=== PATIENT | female | born 1940 | race Caucasian/White ===

== ENCOUNTER 2022-04-09 09:28 | Inpatient (IN) ==
[2022-04-09] MEDS ORDERED: Ipratropium/Albuterol Neb 3 ML IH PRN (17:03)
[2022-04-09] MEDS ORDERED: D5% in Water 1,000 ML IVC PRN (17:04)
[2022-04-09] MEDS ORDERED: Dextrose Gel 15 GM/37.5 ML TUBE PO PRN ×2 (17:04)
[2022-04-09] MEDS ORDERED: *HR* Dextrose 50 % in Water (Syg) 50 ML SYRINGE IVP PRN (17:04)
[2022-04-09] MEDS: hydrALAZINE 25 MG TABLET PO SCH (20:28)
[2022-04-09] MEDS: Gabapentin 400 MG CAPSULE PO SCH (20:30)
[2022-04-09] MEDS: Insulin LISPRO 300 UNITS/3 ML VIAL SUBQ SCH (20:35)
[2022-04-10 04:17] LABS: Basophils # 0.1 K/mcL (0.0-0.2); Basophils % 0.8 %; Eosinophils # 0.3 K/mcL (0.0-0.6); Eosinophils % 2.6 %; Hematocrit 29.5 % (35.3-44.9); Hemoglobin 9.4 g/dL (11.5-15.4); Immature Granulocytes % 4.2 % (0-4); Lymphocytes % 20.2 %; Mean Corpuscular HGB Conc 31.9 g/dL (31.6-35.5); Mean Corpuscular Hemoglobin 28.7 pg (28.0-33.3); Mean Corpuscular Volume 89.9 fL (83.0-100.0); Monocytes # 0.6 K/mcL (0.0-1.3); Monocytes % 5.6 %; Neutrophils # 6.5 K/mcL (1.6-8.9); Platelet Count 334 K/mcL (140-400); Red Blood Count 3.28 M/mcL (3.82-4.97); Red Cell Distribution Width 15.8 % (11.5-14.5); Segmented Neutrophils % 66.6 %; White Blood Count 9.8 K/mcL (4.3-11.1)
[2022-04-10 04:47] LABS: Calcium 9.5 mg/dL (8.6-10.3); Potassium 3.9 mEq/L (3.5-5.1)
[2022-04-10] MEDS: *HR* Enoxaparin 40 MG/0.4 ML SYRINGE SQ SCH (06:18)
[2022-04-10] MEDS: Insulin LISPRO 300 UNITS/3 ML VIAL SUBQ SCH ×4 (07:40→20:21)
[2022-04-10] MEDS ORDERED: Insulin DETEMIR 100 UNIT/ML X5UNITS SUBQ SCH (09:00)
[2022-04-10] MEDS: allopurinoL 100 MG TABLET PO SCH (10:09)
[2022-04-10] MEDS: hydrALAZINE 25 MG TABLET PO SCH ×3 (10:09→20:29)
[2022-04-10] MEDS: Magnesium Oxide 400 MG TABLET PO SCH (10:10)
[2022-04-10] MEDS: Gabapentin 400 MG CAPSULE PO SCH ×3 (10:10→20:29)
[2022-04-10] MEDS: Metoprolol XL (24 HR) Succ 50 MG TAB.ER.24H PO SCH (10:10)
[2022-04-10] MEDS: Aspirin 81 MG TAB.CHEW PO SCH (10:10)
[2022-04-10] MEDS: rOPINIRole 1 MG TABLET PO SCH (22:11)
[2022-04-10] MEDS: Furosemide 20 MG TABLET PO SCH (22:13)
[2022-04-11] MEDS: *HR* Enoxaparin 40 MG/0.4 ML SYRINGE SQ SCH (05:35)
[2022-04-11] MEDS: Insulin LISPRO 300 UNITS/3 ML VIAL SUBQ SCH ×4 (07:41→21:35)
[2022-04-11] MEDS: hydrALAZINE 25 MG TABLET PO SCH ×3 (07:52→21:36)
[2022-04-11] MEDS: Metoprolol XL (24 HR) Succ 50 MG TAB.ER.24H PO SCH (07:52)
[2022-04-11] MEDS: Aspirin 81 MG TAB.CHEW PO SCH (07:52)
[2022-04-11] MEDS: allopurinoL 100 MG TABLET PO SCH (07:52)
[2022-04-11] MEDS: Magnesium Oxide 400 MG TABLET PO SCH (07:53)
[2022-04-11] MEDS: Furosemide 20 MG TABLET PO SCH (07:53)
[2022-04-11] MEDS: Gabapentin 300 MG CAPSULE PO SCH ×3 (08:04→21:36)
[2022-04-11] MEDS: Nicotine 21 MG PATCH.TD24 TD SCH (08:05)
[2022-04-11] MEDS: Insulin DETEMIR 100 UNIT/ML X5UNITS SUBQ SCH ×2 (08:11→21:36)
[2022-04-11 17:25] LABS: Bilirubin,Urine Negative (Negative); Blood,Urine Negative (Negative); Clarity,Urine Clear (Clear); Color,Urine Yellow (Yellow); Glucose,Urine (UA) Normal (Normal); Ketones,Urine Negative (Negative); Leukocyte Esterase,Urine Negative (Negative); Nitrite,Urine Negative (Negative); PH,Urine 6.5 pH Units (5.0-8.0); Protein,Urine Negative (Neg-Trace); Specific Gravity,Urine 1.015 (1.010-1.025); Urobilinogen,Urine Normal (Normal)
[2022-04-11] MEDS: rOPINIRole 1 MG TABLET PO SCH (21:36)
[2022-04-12 03:48] LABS: Hematocrit 28.5 % (35.3-44.9); Hemoglobin 8.9 g/dL (11.5-15.4); Mean Corpuscular HGB Conc 31.2 g/dL (31.6-35.5); Mean Corpuscular Hemoglobin 28.2 pg (28.0-33.3); Mean Corpuscular Volume 90.2 fL (83.0-100.0); Platelet Count 317 K/mcL (140-400); Red Blood Count 3.16 M/mcL (3.82-4.97); Red Cell Distribution Width 15.5 % (11.5-14.5); White Blood Count 8.8 K/mcL (4.3-11.1)
[2022-04-12 04:03] LABS: Calcium 9.6 mg/dL (8.6-10.3); Magnesium 1.7 mg/dL (1.6-2.6)
[2022-04-12] MEDS: *HR* Enoxaparin 40 MG/0.4 ML SYRINGE SQ SCH (05:48)
[2022-04-12] MEDS: Nicotine 21 MG PATCH.TD24 TD SCH (08:27)
[2022-04-12] MEDS: Aspirin 81 MG TAB.CHEW PO SCH (08:28)
[2022-04-12] MEDS: allopurinoL 100 MG TABLET PO SCH (08:28)
[2022-04-12] MEDS: Insulin DETEMIR 100 UNIT/ML X5UNITS SUBQ SCH ×2 (08:28→21:46)
[2022-04-12] MEDS: Furosemide 20 MG TABLET PO SCH (08:28)
[2022-04-12] MEDS: Gabapentin 300 MG CAPSULE PO SCH ×3 (08:28→21:44)
[2022-04-12] MEDS: Insulin LISPRO 300 UNITS/3 ML VIAL SUBQ SCH ×4 (08:28→21:41)
[2022-04-12] MEDS: Magnesium Oxide 400 MG TABLET PO SCH (08:28)
[2022-04-12] MEDS: hydrALAZINE 25 MG TABLET PO SCH ×3 (08:28→21:44)
[2022-04-12] MEDS: Metoprolol XL (24 HR) Succ 50 MG TAB.ER.24H PO SCH (08:28)
[2022-04-12] MEDS: rOPINIRole 1 MG TABLET PO SCH (21:44)
[2022-04-13] MEDS: *HR* Enoxaparin 40 MG/0.4 ML SYRINGE SQ SCH (06:39)
[2022-04-13] MEDS: Metoprolol XL (24 HR) Succ 50 MG TAB.ER.24H PO SCH (08:34)
[2022-04-13] MEDS: Gabapentin 300 MG CAPSULE PO SCH ×3 (08:34→20:36)
[2022-04-13] MEDS: hydrALAZINE 25 MG TABLET PO SCH ×3 (08:38→20:35)
[2022-04-13] MEDS: Aspirin 81 MG TAB.CHEW PO SCH (08:38)
[2022-04-13] MEDS: Insulin LISPRO 300 UNITS/3 ML VIAL SUBQ SCH ×4 (08:38→20:35)
[2022-04-13] MEDS: Magnesium Oxide 400 MG TABLET PO SCH (08:38)
[2022-04-13] MEDS: allopurinoL 100 MG TABLET PO SCH (08:38)
[2022-04-13] MEDS: Furosemide 20 MG TABLET PO SCH (08:38)
[2022-04-13] MEDS: Insulin DETEMIR 100 UNIT/ML X5UNITS SUBQ SCH ×2 (08:39→20:35)
[2022-04-13] MEDS: Nicotine 21 MG PATCH.TD24 TD SCH (08:39)
[2022-04-13] MEDS: rOPINIRole 1 MG TABLET PO SCH (20:35)
[2022-04-14 05:12] LABS: Hematocrit 30.9 % (35.3-44.9); Hemoglobin 9.9 g/dL (11.5-15.4); Mean Corpuscular Hemoglobin 28.8 pg (28.0-33.3); Mean Corpuscular Volume 89.8 fL (83.0-100.0); Mean Platelet Volume 9.8 fL (9.4-12.4); Platelet Count 314 K/mcL (140-400); Red Blood Count 3.44 M/mcL (3.82-4.97); Red Cell Distribution Width 15.3 % (11.5-14.5); White Blood Count 8.9 K/mcL (4.3-11.1)
[2022-04-14 05:26] LABS: Calcium 9.5 mg/dL (8.6-10.3); Magnesium 1.7 mg/dL (1.6-2.6)
[2022-04-14] MEDS: *HR* Enoxaparin 40 MG/0.4 ML SYRINGE SQ SCH (06:26)
[2022-04-14] MEDS: allopurinoL 100 MG TABLET PO SCH (08:01)
[2022-04-14] MEDS: Nicotine 21 MG PATCH.TD24 TD SCH (08:01)
[2022-04-14] MEDS: Gabapentin 300 MG CAPSULE PO SCH ×3 (08:02→19:11)
[2022-04-14] MEDS: Magnesium Oxide 400 MG TABLET PO SCH (08:02)
[2022-04-14] MEDS: Furosemide 20 MG TABLET PO SCH (08:02)
[2022-04-14] MEDS: Metoprolol XL (24 HR) Succ 50 MG TAB.ER.24H PO SCH (08:02)
[2022-04-14] MEDS: hydrALAZINE 25 MG TABLET PO SCH ×3 (08:02→19:11)
[2022-04-14] MEDS: Aspirin 81 MG TAB.CHEW PO SCH (08:05)
[2022-04-14] MEDS: Insulin LISPRO 300 UNITS/3 ML VIAL SUBQ SCH ×4 (08:06→18:45)
[2022-04-14] MEDS: Insulin DETEMIR 100 UNIT/ML X5UNITS SUBQ SCH ×2 (11:28→19:11)
[2022-04-14] MEDS: rOPINIRole 1 MG TABLET PO SCH (19:11)
[2022-04-14 19:16] VITALS: BP 154/83; PULSE 78; RESP 17; TEMP 97.8; O2SAT 93
== END 2022-04-14 23:59 | disposition other institution (70) | DRG 682 ==
LOC: INPGRE 16:47
PROVIDERS: ADMIT Family Medicine; ATTEND Family Medicine